=== PATIENT | female | born 1990 | race Native Hawaiian/Other Pacific Islander ===

== ENCOUNTER 2018-01-27 15:04 | Emergency (ER) | payer BC ==
[2018-01-27 15:07] VITALS: BMI 20.1
[2018-01-27 15:10] VITALS: O2SAT 100
--- NOTE | 2018-01-27 16:18 | ED PDOC ---
HPI: General Adult Time Seen by Provider: 01/27/18 15:44 Chief Complaint (Nursing): Abnormal Skin Integrity Chief Complaint (Provider): Hand injury History Per: Patient History/Exam Limitations: no limitations Onset/Duration Of Symptoms: Mins Current Symptoms Are (Timing): Still Present Pain Scale Rating Of: 5 Additional Complaint(s): 27 year old female presented to ED for evaluation of a right hand injury, which occurred [employer]. Patient reports that she was washing a glass cup, which cracked and cut her hand. She indicates the pain is a stinging pain and rates it a 5/10 , localized to the laceration site. Her last tetanus shot was more than 10 years ago and her LMP was 4 days ago. PMD: none provided Past Medical History Reviewed: Historical Data, Nursing Documentation, Vital Signs Vital Signs: Last Vital Signs Temp 98 F 01/27/18 17:45 Pulse 78 01/27/18 17:45 Resp 18 01/27/18 17:45 BP 108/60 01/27/18 17:45 Pulse Ox 100 01/29/18 00:23 - Medical History PMH: No Chronic Diseases - Surgical History Surgical History: Appendectomy - Family History Family History: States: Unknown Family Hx - Social History Current smoker - smoking cessation education provided: No Alcohol: None Drugs: Denies - Allergies Allergies/Adverse Reactions: Allergies Allergy/AdvReac Type Severity Reaction Status Date / Time No Known Allergies Allergy Verified 01/27/18 15:12 Review of Systems ROS Statement: Except As Marked, All Systems Reviewed And Found Negative Musculoskeletal: Positive for: Hand Pain (Hand injury) Physical Exam - Reviewed Nursing Documentation Reviewed: Yes Vital Signs Reviewed: Yes - Physical Exam Comments: GENERAL APPEARANCE: Patient is awake, alert, oriented x 3, in no acute distress. SKIN: Warm, dry; (-) cyanosis NECK: Supple ENT: Mucus membranes moist. RIGHT HAND: 1cm linear, superficial laceration to the webspace between the 4th and 5th digits. Full ROM of all digits with sensation intact. (+) minimal tenderness (-) active bleeding, (-) swelling, (-) ecchymosis (-) FB visualized. NV intact. CHEST AND RESPIRATORY: (-) wheezing; (-) rales, (-) rhonchi, (-) rub; breath sounds equal bilaterally. HEART AND CARDIOVASCULAR: (-) irregularity; (-) murmur, (-) gallop. NEURO AND PSYCH: Mental status as above. Gait steady, speech clear. - ECG O2 Sat by Pulse Oximetry: 100 (RA) Pulse Ox Interpretation: Normal Medical Decision Making Medical Decision Making: Initial Impression: finger laceration Initial plan: Tetanus 0.5mL IM Laceration Repair Lidocaine Inj 1645 Laceration repair performed by Adeel MILLER. See procedure note below. NV intact after procedure. 1730 On re-evaluation, patient reports improvement of symptoms. On exam, patient remains AAOx3, in no acute distress. On exam, neck is supple, lungs CTA, cardiac RRR, neuro exam shows no focal findings. Vitals stable, stable for discharge. Educated on wound care. Diagnostic results d/w the patient in great detail. Dx of finger laceration d/w the patient. Based on history, exam and diagnostic results plan will be for discharge and outpatient follow up. Advised to follow up with primary care physician/clinic in 1-2 days without fail. Advised to take OTC medication as needed for pain control. Return to the emergency room at any time for any new or worsening symptoms. Patient states she fully agrees with and understands discharge instructions. States that she agrees with the plan and disposition. Verbalized and repeated discharge instructions and plan. I have given the patient opportunity to ask any additional questions. Scribe Attestation: Documented by Ayo Catalan acting as a scribe for Coretta K. Adeel PA. Provider Scribe Attestation: All medical record entries made by the Scribe were at my direction and personally dictated by me. I have reviewed the chart and agree that the record accurately reflects my personal performance of the history, physical exam, medical decision making, and the department course for this patient. I have also personally directed, reviewed, and agree with the discharge instructions and disposition. Procedures - Laceration/Wound Repair Right Hand Wound Length (cm): 1 Wound's Depth, Shape: superficial, linear Wound Explored: no foreign body removed Irrigated w/ Saline (ccs): 100 Betadine Prep?: No Anesthesia: 1% Lidocaine Volume Anesthetic (ccs): 2 Wound Repaired With: Sutures Suture Size/Type: 5:0 (Monocryl) Number of Sutures: 2 Layer Closure?: No Wound Complexity: Simple Sterile Dressing Applied?: Yes (bacitracin, telfa, and cling dressing applied) Progress: Patient tolerated procedure well. Disposition - Clinical Impression Clinical Impression: Finger laceration - Patient ED Disposition Is Patient to be Admitted: No Counseled Patient/Family Regarding: Diagnosis, Need For Followup - Disposition Disposition: Routine/Home Disposition Time: 17:34 Condition: STABLE Additional Instructions: KEEP WOUND CLEAN AND DRY, CLEAN 2X DAILY AND APPLY THIN LAYER OF ANTIBIOTIC OINTMENT. SUTURES ARE ABSORBABLE. RETURN TO ED WITH ANY NEW OR WORSENING SYMPTOMS. USE TYLENOL OR MOTRIN NEEDED FOR PAIN CONTROL. Instructions: Wound Care, Laceration Repair With Stitches (DC) Forms: [employer] (Divehi) Print Language: CITIZ[place]
[2018-01-27] MEDS ORDERED: Lidocaine 1% Inj (20ml) IJ ONE (16:33)
[2018-01-27] MEDS ORDERED: Tdap Vaccine 0.5 ml Vial (10-64 yrs) IM ONE ×2 (16:40→17:15)
[2018-01-27] MEDS ORDERED: Bacitracin OINT 15GM TOP STA (17:00)
[2018-01-28 01:17] VITALS: BP 108/60; PULSE 78; RESP 18; TEMP 98
== END 2018-01-27 17:45 | disposition home or self-care (01) ==
LOC: H.ER 15:04
DX: S61.411A Laceration without foreign body of right hand, initial encounter (principal); W25.XXXA Contact with sharp glass, initial encounter; Y93.G1 Activity, food preparation and clean up; Z23 Encounter for immunization